=== PATIENT | male | born 1960 | race Caucasian/White ===

== ENCOUNTER 2020-11-08 13:24 | Inpatient (IN) | payer OTHER ==
[~2020-11-08] VITALS: Ht 185.4 cm; Wt 82.1 kg
[2020-11-08] MEDS ORDERED: IV NS 0.9% 1,000 ML BAG IV ONE (14:00)
[2020-11-08] MEDS ORDERED: ONDANSETRON HCL/PF 4 MG/2 ML VIAL IVP ONE (14:00)
--- NOTE | 2020-11-08 14:06 | NUR ---
dr pathak at bedside for eval.
[2020-11-08] MEDS ORDERED: MVI-12 10ML IV ONE (14:30)
[2020-11-08] MEDS ORDERED: ONDANSETRON HCL/PF 4 MG/2 ML VIAL ONE (14:48)
[2020-11-08] MEDS ORDERED: MVI ADULT 10ML VIAL = 1AMP 10 ML in IV NS 0.9% 1,000 ML IV ONE (16:00)
[2020-11-08 16:03] LABS: HEMATOCRIT 37 % (39-51); HEMOGLOBIN 12.1 g/dL (13.5-17.5); LYMPHOCYTES % (AUTO) 26.6 % (20.0-44.0); MEAN CORPUSCULAR HGB CONC 33 g/dl (31.0-36.0); MEAN CORPUSCULAR VOLUME 108 fL (80-96); MONOCYTES # (AUTO) 0.5 /CMM (0.1-1.30); MONOCYTES % (AUTO) 13.6 % (2.0-12.0); NEUTROPHILS # (AUTO) 2.2 /CMM (1.8-8.9); NEUTROPHILS % (AUTO) 57.8 % (43.0-81.0); PLATELET COUNT (AUTO) 71 /CMM (150-450); RED BLOOD CELL COUNT(AUTO) 3.39 MIL/uL (4.5-6.0); WHITE BLOOD COUNT (AUTO) 3.8 K/uL (4.3-11.0)
[2020-11-08 16:10] LABS: ALBUMIN 2.7 g/dL (3.4-5.0); BILIRUBIN,DIRECT 0.6 mg/dL (0.0-0.2); BILIRUBIN,TOTAL 0.9 mg/dL (0.2-1.0); CALCIUM, SERUM 8.8 mg/dL (8.5-10.1); CREATININE 0.9 mg/dL (0.6-1.3); POTASSIUM 4.1 mmol/L (3.5-5.1); TOTAL PROTEIN, SERUM 7.9 g/dL (6.4-8.2)
[2020-11-08 16:40] LABS: EOSINOPHILS % (MANUAL) 1 % (0-4); LYMPHOCYTES % (MANUAL) 23 % (16-48); MONOCYTES % (MANUAL) 8 % (0-11.0); NEUTROPHILS % (MANUAL) 67 (42-76); REACTIVE LYMPHOCYTES 1 % (0-0)
--- NOTE | 2020-11-08 16:50 | NUR ---
PT GIVEN CRACKERS
--- NOTE | 2020-11-08 17:09 | NUR ---
Swabs for COVID as ordered. Pt made aware of plan. Awaiting admission
[2020-11-08] MEDS ORDERED: IV NS 0.9% 1,000 ML IV PRN (17:30)
[2020-11-08] MEDS ORDERED: ONDANSETRON HCL/PF 4 MG/2 ML VIAL IVP PRN (17:30)
[2020-11-08] MEDS ORDERED: Z GUARD REMEDY 2 OZ OINT TP PRN (17:30)
[2020-11-08] MEDS ORDERED: ACETAMINOPHEN 325 MG TABLET PO PRN (17:30)
[2020-11-08] MEDS ORDERED: MAGNESIUM HYDROXIDE 30 ML UDC PO PRN (17:30)
[2020-11-08] MEDS ORDERED: MAG HYDROX/AL HYDROX/SIMETH 30 ML UDC PO PRN (17:30)
[2020-11-08] MEDS ORDERED: LORAZEPAM INJ 2 MG/ML VIAL IV PRN (18:00)
--- NOTE | 2020-11-08 21:27 | NUR ---
REPORT GIVEN TO CHEPE GUIDRY FOR JIM
--- NOTE | 2020-11-08 21:55 | NUR ---
RN OPENING NOTES RECEIVED PATIENT FROM ER VIA GURNEY SAFELY TRANSFERRED TO BED, AWAKE ALERT AND ORIENTEDX4,RESPIRATIONS EVEN AND UNLABORED WITH EQUAL RISE AND FALL OF CHEST, PLACED ON LOSS PREVENTION REPRESENTATIVE, SR 90, RIGHT UPPER ARM MIDLINE INTACT AND PATENT, RECEIVED WITH MVI IVF RUNNING ORDERED WILL RUN TILL COMPLETED. BELONGINGS LIST DONE, BODY ASSESSMENT DONE, WOUND PICS TAKEN PLACED IN CHART, DISCUSSED PLAN OF CARE , ORIENTED TO STAFF AND CALL LIGHT AND KEPT WITHIN REACH, SAFETY PRECAUTIONS MAINTAINED,ALL NEEDS ATTENDED WILL CONTINUE TO MONITOR , URINAL AND FLUIDS OFFERED WITHIN REACH.
[2020-11-08 22:00] VITALS: BP 116/71
[2020-11-08] MEDS: MULTIVITAMINS,THERAGRAN 1 UDTAB TABLET PO SCH (22:15)
[2020-11-08] MEDS: HYDROCODONE/APAP 5/325MG TABLET PO PRN (22:16)
--- NOTE | 2020-11-08 22:16 | NUR ---
RN NOTES PATIENT COMPLAINED OF PAINT STATES 10/10 TO LOWER BACK AREA, NORCO OFFERED PATIENT AGREED, PRN PAIN MEDICATION GIVEN ORDERED, VS WNL. WILL CONTINUE TO MONITOR FOR EFFECTIVENESS.
--- NOTE | 2020-11-08 23:55 | NUR ---
RN NOTES PATIENT REQUESTED FOR SOMETHING TO ASSIST HIM SLEEP. PRN ATIVAN OFFERED ORDERED, PATIENT AGREED VS WNL, GIVEN ORDERED ATIVAN 0.5ML GIVEN , REST WASTED AND WITNESSED WITH CHAO ROBLEDO.
[2020-11-09] VITALS: BP 103/55
[2020-11-09 01:45] VITALS: BP 103/55
[2020-11-09 05:10] VITALS: BP 102/52
--- NOTE | 2020-11-09 06:47 | NUR ---
RN CLOSING NOTES PATIENT IN BED, AWAKE ALERT AND ORIENTEDX4,RESPIRATIONS EVEN AND UNLABORED WITH EQUAL RISE AND FALL OF CHEST, PLACED ON INSURANCE AGENT, SR 73, RIGHT UPPER ARM MIDLINE INTACT AND PATENT, RECEIVED WITH MVI IVF RUNNING NOW INFUSED , NS AT 75ML/HR RUNNING ORDERED ,ORIENTED TO STAFF AND CALL LIGHT AND KEPT WITHIN REACH, SAFETY PRECAUTIONS MAINTAINED,ALL NEEDS ATTENDED WILL CONTINUE TO MONITOR AND ATTEND TO NEEDS, URINAL AND FLUIDS OFFERED WITHIN REACH. REMAINED COMFORTABLE THROUGHOUT SHIFT. WILL ENDORSE TO ONCOMING NURSE.
--- NOTE | 2020-11-09 07:59 | NUR ---
MS RN OPENING NOTE PATIENT IS IN BED RESTING. PATIENT IS IN NO ACUTE DISTRESS. PATIENT IS ON ROOM AIR. NO SOB NOTED. HOB ELEVATED. SAFETY PRECAUTIONS ARE IN PLACE. BED IN THE LOWEST POSITION WITH SIDE RAILS UP. CALL LIGHT WITHIN REACH. WILL CONTINUE TO MONITOR THROUGH OUT THE SHIFT.
[2020-11-09 08:00] VITALS: BP 107/78
[2020-11-09] MEDS: FOLIC ACID 1 MG TABLET PO SCH (08:47)
[2020-11-09] MEDS: MULTIVITAMINS,THERAGRAN 1 UDTAB TABLET PO SCH (08:47)
[2020-11-09] MEDS: HYDROCODONE/APAP 5/325MG TABLET PO PRN ×2 (08:50→21:14)
[2020-11-09 10:40] LABS: CALCIUM, SERUM 7.9 mg/dL (8.5-10.1); CREATININE 0.9 mg/dL (0.6-1.3); MAGNESIUM 1.7 mg/dL (1.8-2.4); PHOSPHORUS 3.5 mg/dL (2.5-4.9); POTASSIUM 4.1 mmol/L (3.5-5.1)
[2020-11-09 11:08] LABS: BASOPHILS % (AUTO) 0.9 % (0.0-2.0); EOSINOPHILS % (AUTO) 1.7 % (0.0-6.0); HEMATOCRIT 30 % (39-51); LYMPHOCYTES # (AUTO) 1.1 /CMM (0.8-4.8); LYMPHOCYTES % (AUTO) 39.4 % (20.0-44.0); MEAN CORPUSCULAR HGB CONC 33 g/dl (31.0-36.0); MEAN CORPUSCULAR VOLUME 109 fL (80-96); MONOCYTES # (AUTO) 0.6 /CMM (0.1-1.30); PLATELET COUNT (AUTO) 54 /CMM (150-450); RED BLOOD CELL COUNT(AUTO) 2.78 MIL/uL (4.5-6.0); WHITE BLOOD COUNT (AUTO) 2.7 K/uL (4.3-11.0)
[2020-11-09 16:00] VITALS: BP 113/80
[2020-11-09 16:09] LABS: BAND % (MANUAL) 3 % (0.0-5.0); EOSINOPHILS % (MANUAL) 2 % (0-4); LYMPHOCYTES % (MANUAL) 34 % (16-48); MONOCYTES % (MANUAL) 22 % (0-11.0); NEUTROPHILS % (MANUAL) 39 (42-76)
[2020-11-09] MEDS: Magnesium 1GM/D5W 100ML PREMIX 100 ML IV SCH ×2 (19:21→21:07)
--- NOTE | 2020-11-09 19:45 | NUR ---
MS RN CLOSING NOTE PATIENT IS IN RESTING IN BED. NO SIGNS OF DISTRESS NOTED. PATIENT IS ON ROOM AIR. NO SOB NOTED. HOB ELEVATED. SAFETY PRECAUTIONS ARE IN PLACE. BED IN THE LOWEST POSITION WITH SIDE RAILS UP. CALL LIGHT WITHIN REACH. ENDORSE PATIENT TO THE FABRIC WORKER LEADER NURSE FOR CONTINUOUS MONITORING.
--- NOTE | 2020-11-09 20:00 | NUR ---
MS INITIAL NOTES RECEIVED PT IN BED AWAKE AND ALERT WATCHING TV AT THIS TIME WITH IVF OF NS AT 75ML/HR INFUSING ON HIS RIGHT UPPER ARM MIDLINE. PATENT AND INTACT. DENIES ANY PAIN OR ANY DISCOMFORT. AWARE HOW TO USED THE CALL LIGHT . NO SIGNS OF ANY DISTRESS OR ANY DISCOMFORT AT THIS TIME. PLACE CALL LIGHT AT REACH. WILL CONTINUE MONITORING.
[2020-11-09 20:22] VITALS: BP 126/84
--- NOTE | 2020-11-09 21:14 | NUR ---
MS MARY NOTES PT CALLED AND COMPLAINING OF PAIN ON HIS LOWER BACK9/10 , NORCO TABLET GIVEN ORDERED. WILL CONTINUE MONITORING.
--- NOTE | 2020-11-10 02:11 | NUR ---
ms marry notes c/o lower back pain , norco tablet given as ordered. no signs of any distress noted. IVF still infusing.
[2020-11-10] MEDS: HYDROCODONE/APAP 5/325MG TABLET PO PRN ×2 (02:21→20:44)
--- NOTE | 2020-11-10 07:15 | NUR ---
CHAIR PAD MAKER CLOSING NOTES PT RESTING AT THIS TIME AFTER PAIN MEDS GIVEN EARLIER. NO SIGNS OF ANY DISCOMFORT. IVF STILL INFUSING. KEPT HIM WARM AND COMFORTABLE AT ALL TIMES. PT ABLE TO STAND UP BY HIMSELF. ENDORSE TO AM NURSE.
--- NOTE | 2020-11-10 07:36 | NUR ---
MS RN OPENING NOTES RECEIVED PATIENT AWAKE IN BED IN NO ACUTE SIGNS OF DISTRESS. A/O X3-4. ABLE TO MAKE NEEDS KNOWN, DENIES PAIN OR ANY DISCOMFORTS AT THIS TIME. ON ROOM AIR, BREATHING EVEN AND UNLABORED. RUPAL MIDLINE INTACT WITH IVF OF NS @ 75ML/HR INFUSING, NO S/S OF INFILTRATION NOTED. SAFETY PRECAUTIONS IN PLACE; BED IN LOW POSITION AND LOCKED, RAILS UP X2, BED ALARM ON AND CALL LIGHT WITHIN REACH. WILL CONTINUE TO MONITOR PATIENT.
[2020-11-10 08:00] VITALS: BP 130/64
[2020-11-10] MEDS: FOLIC ACID 1 MG TABLET PO SCH (08:32)
[2020-11-10] MEDS: MULTIVITAMINS,THERAGRAN 1 UDTAB TABLET PO SCH (08:32)
--- NOTE | 2020-11-10 11:23 | NUR ---
RN NOTES RECEIVED CALL FROM YUSUF KELLY OF RADIOLOGY AND REPORTED REGARDING RESULTS OF CT OF HIP W/O CONTRAST ESPECIALLY WHAT THEY FIND ON PT'S BLADDER. DR MACK MADE AWARE WITH ORDER TO SEND RESULTS TO [facility]. Addendum: 11/10/20 at 1150 by SALAZAR MARCANO RN ERROR: WRONG PATIENT. SORRY!
[2020-11-10 16:00] VITALS: BP 136/83
--- NOTE | 2020-11-10 18:55 | NUR ---
MS RN CLOSING NOTES PATIENT AWAKE AND WATCHING TV AT THIS TIME. A/O X3-4. ABLE TO MAKE NEEDS KNOWN. TOLERATING ROOM AIR WITH NO ACUTE RESPIRATORY DISTRESS NOTED DURING THE DAY. RUPAL MIDLINE INTACT,PATENT AND FLUSHES WELL. ALL NEEDS AND CARE ATTENDED WELL. SAFETY PRECAUTIONS IN PLACE: BED IN LOW POSITION AND LOCKED, RAILS UP X2, BED ALARM ON AND CALL LIGHT WITHIN REACH. WILL ENDORSE TO MILLING OPERATOR NURSE FOR JIM.
[2020-11-10 20:00] VITALS: BP 135/83
--- NOTE | 2020-11-11 06:25 | NUR ---
RN NOTES: PT. REFUSED FULL WEEKLY BODY SKIN ASSESSMENT AND PICTURES TAKEN, ENCOURAGED , RISKS AGUS EXPLINED , PT. STRONGLY REFUSED , WILL CONTINUE WITH CARE .
--- NOTE | 2020-11-11 07:32 | NUR ---
MS RN OPENING NOTES PATIENT RECEIVED AWAKE IN BED IN NO ACUTE SIGNS OF DISTRESS. A/O X3-4. ABLE TO MAKE NEEDS KNOWN, DENIES PAIN OR ANY DISCOMFORTS AT THIS TIME. ON ROOM AIR, BREATHING EVEN AND UNLABORED. RUPAL MIDLINE INTACT, PATENT AND FLUSHES WELL. SAFETY PRECAUTIONS IN PLACE: BED IN LOW POSITION AND LOCKED, SIDE RAILS UP X2, BED ALARM ON AND CALL LIGHT WITHIN REACH. WILL CONTINUE TO MONITOR PATIENT.
[2020-11-11 08:00] VITALS: BP 113/66
[2020-11-11] MEDS: FOLIC ACID 1 MG TABLET PO SCH (08:11)
[2020-11-11] MEDS: MULTIVITAMINS,THERAGRAN 1 UDTAB TABLET PO SCH (08:11)
[2020-11-11] MEDS: HYDROCODONE/APAP 5/325MG TABLET PO PRN ×2 (09:58→20:48)
--- NOTE | 2020-11-11 09:59 | NUR ---
RN NOTES PT C/O ACHING PULLING PAIN ON LOWER BACK, SCALE 7/10. PRN NORCO 5/325 GIVEN AT 0958. WILL CONTINUE TO MONITOR AND REASSESS PT.
--- NOTE | 2020-11-11 11:56 | NUR ---
WOUND CARE CONSULT: PT PRESENTS WITH SCARS AND SCABS ON EXTREMITIES. PT IS CONTINENT AND INDEPENDENT WITH BED MOBILITY. WILL SEE PRN.
--- NOTE | 2020-11-11 14:16 | NUR ---
Medical Education Coordinator consult requested by JORDEN Paulson for homelessness. Patient is a 60 year-old male who presented to [facility] because he had a fall a couple of days ago. Patient is alert and oriented x4. Patient reported to this SW that he is in pain at this time however was agreeable to continue this assessment. Patient reports to this SW that he patient from a young age liked to be on the streets. Per patient, he would always be found on the streets by patients parent's Lucie and Ced Garrison. Patient provided this SW with patient's parent's contact information Lucie and Ced Garrison [phone]. Patient reports that he is not working at this time due to his lower extremity pain. Patient reports that parents assist the patient financially. Patient reports that he was informed that he will be referred to a prison facility. SW informed the patient that this information provided to him was correct. Patient would like information regarding transfer to a prison facility. SW informed the patient that this SW or another member of the interdisciplinary staff would provide this information to the patient. Patient denied alcohol and drug use to this SW, however patient presented initially seeking alcohol withdrawal in addition to a fall. Patient denies drug and ciggarrate use. Patient denied suicidal and homicidal ideation. Patient was calm and cooperative throughout this assessment. Patient is able to make needs known. Patient remains agreeable to transfer to a prison facility. SW remains available for all needs regarding the patient.
[2020-11-11 16:00] VITALS: BP 122/77
--- NOTE | 2020-11-11 19:14 | NUR ---
MS RN CLOSING NOTES PATIENT IN BED AWAKE AND WATCHING TV AT THIS TIME. A/O X3-4. ABLE TO MAKE NEEDS KNOWN. TOLERATING ROOM AIR WITH NO ACUTE RESPIRATORY DISTRESS NOTED DURING THE DAY. RUPAL MIDLINE INTACT, PATENT AND FLUSHES WELL. ALL NEEDS AND CARE ATTENDED WELL. SAFETY PRECAUTIONS IN PLACE; BED IN LOW POSITION AND LOCKED, RAILS UP X2, BED ALARM ON AND CALL LIGHT WITHIN REACH. WILL ENDORSE TO LEAD ORACLE DEVELOPER NURSE FOR JIM.
--- NOTE | 2020-11-11 19:35 | NUR ---
RN NOTES PATIENT IN BED AWAKE AND WATCHING TV AT THIS TIME. A/O X3-4. ABLE TO MAKE NEEDS KNOWN. TOLERATING ROOM AIR WITH NO ACUTE RESPIRATORY DISTRESS NOTED DURING THE DAY. RUPAL MIDLINE INTACT. ALL NEEDS AND CARE ATTENDED WELL. SAFETY PRECAUTIONS IN PLACE; BED IN LOW POSITION AND LOCKED, RAILS UP X2, BED ALARM ON AND CALL LIGHT WITHIN REACH. WILL CONTINUE TO MONITOR
[2020-11-11 20:00] VITALS: BP 110/64
--- NOTE | 2020-11-12 06:36 | NUR ---
RN NOTES PATIENT IN BED ASLEEP EASILY AROUSABLE. A/O X3-4. ABLE TO MAKE NEEDS KNOWN. TOLERATING ROOM AIR WITH NO ACUTE RESPIRATORY DISTRESS NOTED DURING THE DAY. RUPAL MIDLINE INTACT. ALL NEEDS AND CARE ATTENDED WELL. SAFETY PRECAUTIONS IN PLACE; BED IN LOW POSITION AND LOCKED, RAILS UP X2, BED ALARM ON AND CALL LIGHT WITHIN REACH. WILL ENDORSE CARE TO DAY SHIFT
[2020-11-12 08:17] VITALS: BP 112/68
[2020-11-12] MEDS: FOLIC ACID 1 MG TABLET PO SCH (08:40)
[2020-11-12] MEDS: MULTIVITAMINS,THERAGRAN 1 UDTAB TABLET PO SCH (08:40)
[2020-11-12] MEDS: HYDROCODONE/APAP 5/325MG TABLET PO PRN ×2 (08:44→22:15)
[2020-11-12 16:00] VITALS: BP 112/66
--- NOTE | 2020-11-12 19:00 | NUR ---
m/s seo associate: notes no change in point of care. pt remains stable, still awaiting for placement. needs attended.
--- NOTE | 2020-11-12 19:18 | NUR ---
m/s rig superintendent: notes report given to helen (neal) for continuity of care.
--- NOTE | 2020-11-12 19:30 | NUR ---
MS RN OPENING NOTES RECEIVED PATIENT IN BED AWAKE, ALERT AND ORIENTED X4. ABLE TO VERBALIZE NEEDS. NO S/SX OF ACUTE RESPIRATORY DISTRESS NOTED. DENIES PAIN OR DISCOMFORT AT THIS TIME. IV ACCESS ON RUPAL MIDLINE PATENT AND INTACT. KEPT CLEAN AND DRY. SAFETY PRECAUTION IN PLACE AND MAINTAINED AT ALL TIMES. BED IN LOWEST LOCKED POSITION, HOB ELEVATED, SIDE RAILS UP X 2, CALL LIGHT AND TABLE WITHIN REACH. WILL CONTINUE TO MONITOR.
[2020-11-12 20:00] VITALS: BP 120/75
[2020-11-13] MEDS: HYDROCODONE/APAP 5/325MG TABLET PO PRN ×3 (06:26→20:26)
--- NOTE | 2020-11-13 06:53 | NUR ---
MS RN CLOSING NOTES PATIENT IN BED AWAKE, ALERT AND ORIENTED X4. ABLE TO VERBALIZE NEEDS. NO S/SX OF ACUTE RESPIRATORY DISTRESS NOTED. DENIES PAIN OR DISCOMFORT AT THIS TIME. IV ACCESS ON RUPAL MIDLINE PATENT AND INTACT. KEPT CLEAN AND DRY. SAFETY PRECAUTION IN PLACE AND MAINTAINED AT ALL TIMES. BED IN LOWEST LOCKED POSITION, HOB ELEVATED, SIDE RAILS UP X 2, CALL LIGHT AND TABLE WITHIN REACH. WILL ENDORSE TO DAY SHIFT NURSE FOR CONTINUITY OF CARE.
[2020-11-13] MEDS: FOLIC ACID 1 MG TABLET PO SCH (08:38)
[2020-11-13] MEDS: MULTIVITAMINS,THERAGRAN 1 UDTAB TABLET PO SCH (08:38)
[2020-11-13 08:43] VITALS: BP 109/72
--- NOTE | 2020-11-13 09:01 | NUR ---
WOUND CARE CONSULT/FOLLOW UP: PT SEEN FOR RE-EVALUATION OF TOES. DRY SCAB NOTED TO LEFT GREAT TOE, PRESENT ON ADMISSION. NO TENDERNESS, ERYTHEMA OR DRAINAGE. WILL SEE PRN.
--- NOTE | 2020-11-13 10:14 | NUR ---
MS/RN OPENING NOTES PATIENT RECEIVED IN BED. A/O X4. AFEBRILE. NO SOB. BREATHING EVEN AND UNLABORED. IN NO APPARENT DISTRESS. ON ROOM AIR, TOLERATING WELL. RUPAL MIDLINE. PROVIDED SAFETY MEASURES. BED IN LOWEST POSITION, LOCKED. SIDE RAILS UP X2. CALL LIGHT WITHIN REACH. WILL CONTINUE PLAN OF CARE.
--- NOTE | 2020-11-13 14:17 | NUR ---
Social Service Consult: DARVIN met with pt per requesting additional clothing (pants). Patient is a 60 year old homeless male. He expressed that he had an accident and does not have any pants. Pt is alert and oriented x4 (time, place, self , situation). Pt has normal speech with no limitation. Pt appears to be anxious mood and distress affect. Pt denies suicidal and homicidal ideation. Pt is ungroomed, malodorous. Pt is appropriately dressed with medical gown. Pt denies any current substance use. No denies also visual and auditory hallucinations. No hx. of psychotropic medications. No hx. of substance of abuse. SW has given the proper clothing needed as requested by the patient. Pt stated was seen by Shahzad and was provided the necessary resources needed for placement and he also signed the waiver form. DARVIN gave an additional [phone] [facility] program list. DARVIN referred pt. to [facility] [address] [place] [id number] as nearest location. Homeless resources also include Mental health and health clinics include [facility] [address] [place] [address] ([phone]). [facility] [address] [place] [address] ([phone]); Medical clinics: [facility] [address], [place], [place]. ([phone]); [facility] [address] [facility] [facility] [address], [address], [place]. DARVIN provided the pt with a brief substance abuse intervention with referrals to substance abuse programs; [facility] Substance Abuse Self-help line ([phone]); [facility] [address] [place] [address] ([phone]); [facility] [address] [place] [address] ([phone]); [facility] Rehabilitation program ([phone]; [facility] ([phone]); [facility] ([phone]); [facility] ([phone]). Pt. was given the proper resources needed to find [facility] placement but denies services. Pt. was also given clothing (pants) Plan: SW gave the proper resources (clothing-pants) needed as requested by the patient. SW will monitor and follow up with patient if any additional assistance needed.
[2020-11-13 16:02] VITALS: BP_SYST 105; BP_SYST 114; BP_DIAS 52; BP_DIAS 65
--- NOTE | 2020-11-13 18:38 | NUR ---
MS/RN CLOSING NOTES PATIENT RESTING IN BED COMFORTABLY. A/O X4. AFEBRILE. NO SOB NOTED. BREATHING EVEN AND UNLABORED. IN NO APPARENT DISTRESS. ON ROOM AIR, TOLERATING WELL. RUPAL MIDLINE. ROUTINE MEDS WERE GIVEN. SAFETY MEASURES MAINTAINED. BED IN LOWEST POSITION, LOCKED. SIDE RAILS UP X2. CALL LIGHT WITHIN REACH. WILL ENDORSE JIM TO MEDICAL RECORD RETRIEVAL SPECIALIST.
[2020-11-13 20:00] VITALS: BP 110/77
--- NOTE | 2020-11-13 20:00 | NUR ---
MS/RN OPENING NOTES PATIENT RECEIVED IN BED. AFEBRILE. NO SOB. BREATHING EVEN AND UNLABORED. IN NO APPARENT DISTRESS, TOLERATING WELL. RUPAL MIDLINE. PROVIDED SAFETY MEASURES. BED IN LOWEST POSITION, LOCKED. SIDE RAILS UP X2. CALL LIGHT WITHIN REACH. WILL CONTINUE PLAN OF CARE.
--- NOTE | 2020-11-13 20:00 | NUR ---
NURSES NOTES: SEEN PATIENT IN BED AWAKE, WITH NOTED COMPLAINS OF PAIN GENERALIZED BODY AREA- NORCO 1 TAB GIVEN ORDERED. REEALITY ORIENTATION DONE. WILL ADMINISTER OTHER MEDICATIONS. SAFETY AND FALL PRECAUTIONS OBSERVED. RIGHT UPPER ARM MIDLINE IN PLACE. WILL CONTINUE TO MONITOR.
[2020-11-14] MEDS: HYDROCODONE/APAP 5/325MG TABLET PO PRN ×3 (00:44→20:14)
--- NOTE | 2020-11-14 06:46 | NUR ---
CLOSING NOTES: PATIENT IN BED, RESTING COMFORTABLY, COMPLAINED OF GENERALIZED PAIN DURING THIS SHIFT- ADMINISTERED NORCO 5/325MG PRN ORDER WITH NOTED RELIEF. SAFETY AND FALL PRECAUTIONS OBSERVED. BED ALARM KEPT ON. RIGHT UPPER ARM MIDLINE IN PLACE. NEEDS ATTENDED. WILL ENDORSE PATIENT'S CARE TO DAY SHIFT NURSE.
--- NOTE | 2020-11-14 07:30 | NUR ---
MS/RN OPENING NOTES Patient is awake in bed, A&O x 3-4, forgetful at times. Denies any pain and discomfort at this time. Breathing even and non-labored on RA. No respiratory or cardiac distress noted. RUPAL midline present, patent and intact, and flushing well. Bed locked to its lowest position, side rails x 2 up, call light in hand. Will continue with current medical management.
[2020-11-14 08:00] VITALS: BP 101/72
--- NOTE | 2020-11-14 08:00 | NUR ---
MS/RN NOTE Patient expressed the need to leave the hospital because patient needed to see his friend that found his "lost money." Per patient, "it is a serious matter, I can't miss this appointment with my friend." Educated patient about risks and benefits of leaving against medical advice, still insists on leaving. Notified Ayanna REYNAGA.
--- NOTE | 2020-11-14 08:15 | NUR ---
MS/RN NOTE Patient changed his mind on leaving against medical advice. Per patient, "Actually, I don't need to leave, my health is more important."
[2020-11-14] MEDS: MULTIVITAMINS,THERAGRAN 1 UDTAB TABLET PO SCH (08:40)
[2020-11-14] MEDS: FOLIC ACID 1 MG TABLET PO SCH (08:40)
--- NOTE | 2020-11-14 13:30 | NUR ---
MS/RN NOTE Patient states "Am I able to take my Wellbutrin 50 mg medication? I usually take it twice a day. But when I got admitted here, I was not able to take it since then. Is it possible if you ask the doctor if I could continue it?" Notified Ayanna REYNAGA, ordered to continue medication for patient. Order carried out.
[2020-11-14 16:00] VITALS: BP 121/71
[2020-11-14] MEDS: buPROPion 100 MG TABLET PO SCH (16:37)
[2020-11-14 20:00] VITALS: BP 129/83
--- NOTE | 2020-11-14 20:04 | NUR ---
MS/RN CLOSING NOTES Patient awake in bed, A&O x 3-4, forgetful at times. All needs met and attended to. Denies any pain and discomfort throughout shift. Breathing even and non-labored on RA. No respiratory or cardiac distress noted. RUPAL midline present, patent and intact, and flushing well. Fall precautions maintained. Will endorse to piano accompanist nurse.
--- NOTE | 2020-11-14 20:20 | NUR ---
NURSES OPENING NOTES: RECEIVED PATIENT IN BED, AWAKE, WITH NOTED EPISODES OF CONFUSION. PATIENT APPEARS TO BE HYPERVERBAL. HAS COMPLAINS OF PAIN, WILL MEDICATE PATIENT NEEDED. RIGHT UPPER ARM MIDLINE IN PLACE. SAFETY AND FALL PRECAUTIONS MAINTAINED. BED ALARM KEPT ON. WILL CONTINUE TO MONITOR PATIENT.
[2020-11-15] MEDS: HYDROCODONE/APAP 5/325MG TABLET PO PRN ×4 (00:26→20:21)
--- NOTE | 2020-11-15 06:29 | NUR ---
CLOSING NOTES: PATIENT IN HIS BED, RESTING.EXPRESSING HIS DESIRE TO LEAVE. ADMINISTERED PAIN MEDICATIONS ORDERED. SAFETY AND FALL PRECAUTIONS MAINTAINED. MIDLINE IN PLACE. ATTENDED TO ALL PATIENT'S NEEDS.WILL ENDORSE PATIENT TO DAY SHIFT NURSE.
[2020-11-15 08:37] VITALS: BP 95/54
[2020-11-15] MEDS: FOLIC ACID 1 MG TABLET PO SCH (08:40)
[2020-11-15] MEDS: MULTIVITAMINS,THERAGRAN 1 UDTAB TABLET PO SCH (08:40)
[2020-11-15] MEDS: buPROPion 100 MG TABLET PO SCH ×2 (08:40→17:35)
[2020-11-15 16:02] VITALS: BP 101/67
--- NOTE | 2020-11-15 19:00 | NUR ---
m/s firearms expert: notes no change in poa. remains stable. pt for discharge tomorrow. report given to josé antonio (rn) for continuity of care.
--- NOTE | 2020-11-15 19:09 | NUR ---
MS RN OPENING NOTES RECEIVED PATIENT IN BED AWAKE, ALERT AND ORIENTED X4. ABLE TO VERBALIZE NEEDS. NO S/SX OF ACUTE RESPIRATORY DISTRESS NOTED. DENIES PAIN OR DISCOMFORT AT THIS TIME. IV ACCESS ON RUPAL MIDLINE PATENT AND INTACT. KEPT CLEAN AND DRY. SAFETY PRECAUTIONS IN PLACE AND MAINTAINED AT ALL TIMES. BED IN LOWEST LOCKED POSITION, HOB ELEVATED, SIDE RAILS UP X 2, CALL LIGHT AND TABLE WITHIN REACH. WILL CONTINUE TO MONITOR.
[2020-11-15 20:00] VITALS: BP 95/67
[2020-11-15 20:19] VITALS: BP 111/69
[2020-11-15 22:00] VITALS: BP 95/67
[2020-11-16] MEDS: HYDROCODONE/APAP 5/325MG TABLET PO PRN (04:27)
--- NOTE | 2020-11-16 05:56 | NUR ---
MS RN NOTES: AMA PATIENT LEFT IN THE UNIT AROUND 0556, PATIENT SIGNED LEAVING THE HOSPITAL AGAINST MEDICAL ADVICE OR TREATMENT. DR. KENDRICK MADE AWARE OF PATIENT'S VOLUNTARILY LEAVING THE HOSPITAL. RIGHT UPPER ARM MIDLINE REMOVED, NOTED WITH SMALL AMOUNT OF BLEEDING NOTED. APPLIED PRESSURE. COVERED WITH DRY DRESSING AND SECURED WITH TAPE. PATIENT REFUSES SKIN BODY ASSESSMENT. PATIENT SIGNED BELONGINGS FORM. PATIENT IS ALERT AND ORIENTED X3, NO S/SX OF ACUTE RESPIRATORY DISTRESS NOTED. PATIENT LEFT IN STABLE CONDITION. ESCORTED BY THE CHROME PLATER TO THE EXIT DOOR OF THE HOSPITAL. Addendum: 11/16/20 at 0631 by SUNNY SOTO RN PATIENT WANTED TO GO HOME. PATIENT STATED, I WANT TO SEE MY MOM, BEFORE SHE . CHARGE NURSE MADE AWARE.
== END 2020-11-16 05:55 | disposition left against medical advice (07) | DRG 770 ==
LOC: ER 13:33 → TRANSITION 18:21 → MED 21:25
PROVIDERS: ADMIT Internal Medicine; ATTEND Internal Medicine
PROC: 05H533Z Insertion of Infusion Device into Right Subclavian Vein, Percutaneous Approach (ICD-10-PCS; principal; 2020-11-08)
PROC: B546ZZA Ultrasonography of Right Subclavian Vein, Guidance (ICD-10-PCS; 2020-11-08)
DX: F10.229 Alcohol dependence with intoxication, unspecified (principal); E86.0 Dehydration; E43 Unspecified severe protein-calorie malnutrition; F32.9 Major depressive disorder, single episode, unspecified; K70.10 Alcoholic hepatitis without ascites; D53.9 Nutritional anemia, unspecified; M48.56XA Collapsed vertebra, not elsewhere classified, lumbar region, initial encounter for fracture; R74.01 Elevation of levels of liver transaminase levels; E88.09 Other disorders of plasma-protein metabolism, not elsewhere classified; Z68.23 Body mass index [BMI] 23.0-23.9, adult; Y90.5 Blood alcohol level of 100-119 mg/100 ml; Z20.822 Contact with and (suspected) exposure to COVID-19; Z59.0 Homelessness
CPT/HCPCS: 36415; 72110-TC; 73090-TC; 80048-TC; 80076-TC; 82962-TC; 83735-TC; 84100-TC; 85025-TC; 87081-TC; 97112-TC; 97116-TC; 97530-TC; A4217; G0378; G0480; J2060; J2405; J3475; J7030; U0003